=== PATIENT | female | born 1935 | race Caucasian/White ===

== ENCOUNTER 2018-12-22 20:00 | Emergency (ER) | payer MEDICARE, OTHER ==
[2018-12-22 20:04] VITALS: BP 121/63
--- NOTE | 2018-12-22 20:23 | EDM.PDOC ---
ED HPI GENERAL MEDICAL PROBLEM - General Chief Complaint: General Stated Complaint: UNKNOWN Time Seen by Provider: 12/22/18 20:18 Source of Information: Reports: Patient, Family History Limitations: Reports: No Limitations - History of Present Illness INITIAL COMMENTS - FREE TEXT/NARRATIVE: pt states not feel good unable to describe. family states pt been weak no appetite, no energy, unsteady, little confused. seems worse than after her DE last month where she has been good since 4 days ago. Right Headache Pain Score (Numeric/FACES): 6 - Related Data Allergies Allergy/AdvReac Type Severity Reaction Status Date / Time No Known Allergies Allergy Verified 12/22/18 20:12 Home Meds: Home Meds Losartan Potassium [Cozaar] 100 mg PO DAILY 08/08/16 [History] amLODIPine [Norvasc] 10 mg PO DAILY 08/08/16 [History] Cyanocobalamin (Vitamin B-12) [Cyanocobalamin Injection] 1,000 mcg IM .MONTHLY 04/01/17 [History] Ferrous Gluconate 1 tab PO TID 04/01/17 [History] Past Medical History HEENT History: Reports: Impaired Vision, Other (See Below) Other HEENT History: WEARS CORRECTIVE LENS FOR READING. 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: Musculoskeletal History: Reports: None Neurological History: Reports: CVA Psychiatric History: Reports: None Endocrine/Metabolic History: Reports: None Hematologic History: Reports: Anemia, Blood Transfusion(s) Immunologic History: Reports: None Oncologic (Cancer) History: Reports: None Dermatologic History: Reports: None - Infectious Disease History Infectious Disease History: Reports: Chicken Pox, Measles, Mumps - Past Surgical History Head Surgeries/Procedures: Reports: None HEENT Surgical History: Reports: Oral Surgery Cardiovascular Surgical History: Reports: None Respiratory Surgical History: Reports: None GI Surgical History: Reports: Hernia, Abdominal Female Surgical History: Reports: None Endocrine Surgical History: Reports: None Neurological Surgical History: Reports: None Musculoskeletal Surgical History: Reports: Other (See Below) Dermatological Surgical History: Reports: Skin Biopsy Social & Family History - Family History Family Medical History: Noncontributory HEENT: Reports: Cataract Cardiac: Reports: Heart Failure, Stent Respiratory: Reports: None GI: Reports: None : Reports: None OBGYN: Reports: None Musculoskeletal: Reports: None Neurological: Reports: CVA, Seizure Psychiatric: Reports: None Endocrine/Metabolic: Reports: Diabetes, type II Hematologic: Reports: None Oncologic: Reports: Brain - Tobacco Use Smoking Status *Q: Never Smoker - Caffeine Use Caffeine Use: Reports: None Other Caffeine Use: 24oz coffee. 4 cans soda daily - Recreational Drug Use Recreational Drug Use: No ED ROS GENERAL - Review of Systems Review Of Systems: ROS reveals no pertinent complaints other than HPI. ED EXAM, GENERAL - Physical Exam Exam: See Below Exam Limited By: No Limitations General Appearance: Alert, WD/WN, No Apparent Distress Eye Exam: Bilateral Eye: PERRL (pupils ER @ 4mm) Ears: Hearing Grossly Normal Throat/Mouth: Normal Voice, No Airway Compromise Head: Atraumatic Neck: Non-Tender, Full Range of Motion Respiratory/Chest: No Respiratory Distress, Rhonchi. No: Decreased Breath Sounds Cardiovascular: Regular Rate, Rhythm GI/Abdominal: Soft, Non-Tender Extremities: No Pedal Edema Neurological: Alert, Oriented, Normal Cognition, No Motor/Sensory Deficits Psychiatric: Flat Affect Skin Exam: Warm, Dry, Normal Color Lymphatic: No Adenopathy Course - Vital Signs Last Recorded V/S: Last Vital Signs Temp 36.4 C 12/22/18 20:01 Pulse 97 12/22/18 20:01 Resp 26 H 12/22/18 20:01 BP 121/63 12/22/18 20:01 Pulse Ox 98 12/22/18 20:01 - Orders/Labs/Meds Orders: Active Orders 24 hr Category Date Time Status EKG Documentation Completion [RC] STAT Care 12/22/18 20:15 Active Chest 1V Frontal [CR] Urgent Exams 12/22/18 20:15 Taken Head wo Cont [CT] Urgent Exams 12/22/18 20:17 Taken CULTURE URINE [RM] Routine Lab 12/22/18 20:34 Received Labs: Laboratory Tests 12/22/18 12/22/18 12/22/18 Range/Units 20:10 20:10 20:10 WBC 16.3 H (5.0-10.0) 10^3/uL RBC 5.91 H (4.2-5.4) 10^6/uL Hgb 16.8 H (12.0-16.0) g/dL Hct 50.3 H (37.0-47.0) % MCV 85.1 (80-100) fL MCH 28.4 (27.0-34.0) pg MCHC 33.4 (33.0-35.0) g/dL Plt Count 165 (150-450) 10^3/uL Neut % (Auto) 87.2 H (42.2-75.2) % Lymph % (Auto) 7.4 L (20.5-50.1) % Dolores % (Auto) 4.4 (2-8) % Eos % (Auto) 0.9 L (1.0-3.0) % Baso % (Auto) 0.1 (0.0-1.0) % D-Dimer, Quantitative (0-400) ng/mL Sodium 138 (135-145) mmol/L Potassium 2.6 L (3.6-5.0) mmol/L Chloride 94 L (101-111) mmol/L Carbon Dioxide 27.0 (21.0-31.0) mmol/L Anion Gap 19.6 BUN 33 H (7-18) mg/dL Creatinine 2.5 H (0.6-1.3) mg/dL Est Cr Clr Drug Dosing TNP Estimated GFR (MDRD) 18 BUN/Creatinine Ratio 13.20 Glucose 117 H (74-105) mg/dL Lactic Acid 2.4 H (0.5-2.2) mmol/L Calcium 8.7 (8.4-10.2) mg/dl Total Bilirubin 1.2 H (0.2-1.0) mg/dL AST 478 H (10-42) IU/L ALT 211 H (10-60) IU/L Alkaline Phosphatase 104 (42-121) IU/L Troponin I 0.14 H* (0.00-0.02) ng/ml B-Natriuretic Peptide 831 H (0-100) pg/ml Total Protein 7.0 (6.7-8.2) g/dl Albumin 3.4 (3.2-5.5) g/dl Globulin 3.6 Albumin/Globulin Ratio 0.94 Urine Color (YELLOW) Urine Appearance (CLEAR) Urine pH (5.0-9.0) Ur Specific [place] (1.005-1.030) Urine Protein (NEGATIVE) Urine Glucose (UA) (NEGATIVE) Urine Ketones (NEGATIVE) Urine Occult Blood (NEGATIVE) Urine Nitrite (NEGATIVE) Urine Bilirubin (NEGATIVE) Urine Urobilinogen (0.2-1.0) mg/dL Ur Leukocyte Esterase (NEGATIVE) Urine RBC /HPF Urine WBC (0-5/HPF) /HPF Ur Epithelial Cells (NOT SEEN) /HPF Urine Bacteria (0-FEW/HPF) /HPF Fine Granular Casts (NOT SEEN) /LPF Urine Other 12/22/18 12/22/18 Range/Units 20:10 20:34 WBC (5.0-10.0) 10^3/uL RBC (4.2-5.4) 10^6/uL Hgb (12.0-16.0) g/dL Hct (37.0-47.0) % MCV (80-100) fL MCH (27.0-34.0) pg MCHC (33.0-35.0) g/dL Plt Count (150-450) 10^3/uL Neut % (Auto) (42.2-75.2) % Lymph % (Auto) (20.5-50.1) % Dolores % (Auto) (2-8) % Eos % (Auto) (1.0-3.0) % Baso % (Auto) (0.0-1.0) % D-Dimer, Quantitative 353 (0-400) ng/mL Sodium (135-145) mmol/L Potassium (3.6-5.0) mmol/L Chloride (101-111) mmol/L Carbon Dioxide (21.0-31.0) mmol/L Anion Gap BUN (7-18) mg/dL Creatinine (0.6-1.3) mg/dL Est Cr Clr Drug Dosing Estimated GFR (MDRD) BUN/Creatinine Ratio Glucose (74-105) mg/dL Lactic Acid (0.5-2.2) mmol/L Calcium (8.4-10.2) mg/dl Total Bilirubin (0.2-1.0) mg/dL AST (10-42) IU/L ALT (10-60) IU/L Alkaline Phosphatase (42-121) IU/L Troponin I (0.00-0.02) ng/ml B-Natriuretic Peptide (0-100) pg/ml Total Protein (6.7-8.2) g/dl Albumin (3.2-5.5) g/dl Globulin Albumin/Globulin Ratio Urine Color Brown (YELLOW) Urine Appearance Turbid (CLEAR) Urine pH 7.0 (5.0-9.0) Ur Specific [place] 1.020 (1.005-1.030) Urine Protein >=300 H (NEGATIVE) Urine Glucose (UA) Negative (NEGATIVE) Urine Ketones Trace H (NEGATIVE) Urine Occult Blood Large H (NEGATIVE) Urine Nitrite Negative (NEGATIVE) Urine Bilirubin Moderate H (NEGATIVE) Urine Urobilinogen 2.0 H (0.2-1.0) mg/dL Ur Leukocyte Esterase Negative (NEGATIVE) Urine RBC 0-5 /HPF Urine WBC 10-20 H (0-5/HPF) /HPF Ur Epithelial Cells Many H (NOT SEEN) /HPF Urine Bacteria Many H (0-FEW/HPF) /HPF Fine Granular Casts Moderate H (NOT SEEN) /LPF Urine Other See note Meds: Medications Discontinued Medications Generic Name Dose Route Start Last Admin Trade Name Freq PRN Reason Stop Dose Admin Potassium Chloride 40 meq 12/22/18 21:17 12/22/18 21:24 Klor-Con 10 PO 12/22/18 21:18 40 meq ONETIME ONE Administration - Re-Assessments/Exams Free Text/Narrative Re-Assessment/Exam: 12/22/18 21:45 case discussed sheyla Olivera @ who kindly accepted pt. Departure - Departure Time of Disposition: 21:45 Disposition: DC/Tfer to Acute Hospital 02 Condition: Fair Clinical Impression: Asthenia, Dehydration syndrome, Hypokalemia, Elevated LFTs, Elevated troponin I level, Elevated brain natriuretic peptide (BNP) level - Discharge Information Forms: Interfacility Transfer EMTALA - My Orders Last 24 Hours: My Active Orders 12/22/18 20:15 EKG Documentation Completion [RC] STAT Chest 1V Frontal [CR] Urgent 12/22/18 20:17 Head wo Cont [CT] Urgent 12/22/18 20:34 CULTURE URINE [RM] Routine - Assessment/Plan Last 24 Hours: My Active Orders 12/22/18 20:15 EKG Documentation Completion [RC] STAT Chest 1V Frontal [CR] Urgent 12/22/18 20:17 Head wo Cont [CT] Urgent 12/22/18 20:34 CULTURE URINE [RM] Routine
[2018-12-22 20:40] LABS: ANION GAP 19.6; CHLORIDE,CL 94 mmol/L (101-111); SODIUM,NA 138 mmol/L (135-145)
[2018-12-22] MEDS ORDERED: Potassium Chloride 10 MEQ Tab.ER PO ONE (21:17)
== END 2018-12-22 22:32 ==
LOC: DL.ED 20:00
DX: E87.6 Hypokalemia (principal); E86.0 Dehydration; R53.1 Weakness; R74.8 Abnormal levels of other serum enzymes; R79.1 Abnormal coagulation profile; I10 Essential (primary) hypertension; D64.9 Anemia, unspecified; I25.10 Atherosclerotic heart disease of native coronary artery without angina pectoris; I25.2 Old myocardial infarction; I48.91 Unspecified atrial fibrillation; Z79.899 Other long term (current) drug therapy; Z86.73 Personal history of transient ischemic attack (TIA), and cerebral infarction without residual deficits
CPT/HCPCS: 36415; 70450; 71045; 80053; 81001; 83605; 83880; 84484; 85025; 85379; 87086; 93005; 99285; A9270

== ENCOUNTER 2019-06-30 17:19 | Emergency (ER) | payer MEDICARE, OTHER ==
[2019-06-30 17:26] VITALS: BP 159/96; PULSE 86
[2019-06-30] MEDS ORDERED: Diltiazem 25 MG/5 ML SDV IVPUSH ONE (17:32)
--- NOTE | 2019-06-30 17:48 | EDM.PDOC ---
ED HPI GENERAL MEDICAL PROBLEM - General Chief Complaint: Respiratory Problem Stated Complaint: AMBULANCE Time Seen by Provider: 06/30/19 17:35 Source of Information: Reports: Patient, EMS, Provider History Limitations: Reports: No Limitations - History of Present Illness INITIAL COMMENTS - FREE TEXT/NARRATIVE: This 84 yo female patient was brought to the ED from the [facility] by [facility] due to increased shortness of breath and tachycardia. The patient reports she has not taken her medications today. The patient reports she has been short of breath over the past couple of days. The patient reports she does not get around at her home well. The patient reports she has been having her son move her around the house. The patient reports she has a history of a stroke as well as some heart problems. The patient reports she ate today at about 1100. The provider from the [facility] was concerned about the patient not getting her medications appropriately. Apparently, the home health nurses were concerned about the cleanliness of the home. Onset: Unknown/Unsure Duration: Constant, Getting Worse Location: Reports: Chest, Other Quality: Reports: Other Severity: Moderate Improves with: Reports: None Worsens with: Reports: None Context: Reports: Other Associated Symptoms: Reports: Shortness of Breath - Related Data Allergies Allergy/AdvReac Type Severity Reaction Status Date / Time No Known Allergies Allergy Verified 12/22/18 20:12 Home Meds: Home Meds Losartan Potassium [Cozaar] 100 mg PO DAILY 08/08/16 [History] amLODIPine [Norvasc] 10 mg PO DAILY 08/08/16 [History] Cyanocobalamin (Vitamin B-12) [Cyanocobalamin Injection] 1,000 mcg IM .MONTHLY 04/01/17 [History] Ferrous Gluconate 1 tab PO TID 04/01/17 [History] Past Medical History HEENT History: Reports: Impaired Vision, Other (See Below) Other HEENT History: WEARS CORRECTIVE LENS FOR READING. 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: Musculoskeletal History: Reports: None Neurological History: Reports: CVA Psychiatric History: Reports: None Endocrine/Metabolic History: Reports: None Hematologic History: Reports: Anemia, Blood Transfusion(s) Immunologic History: Reports: None Oncologic (Cancer) History: Reports: None Dermatologic History: Reports: None - Infectious Disease History Infectious Disease History: Reports: Chicken Pox, Measles, Mumps, TB - Past Surgical History Head Surgeries/Procedures: Reports: None HEENT Surgical History: Reports: Oral Surgery Cardiovascular Surgical History: Reports: None Respiratory Surgical History: Reports: None GI Surgical History: Reports: Hernia, Abdominal Female Surgical History: Reports: None Endocrine Surgical History: Reports: None Neurological Surgical History: Reports: None Musculoskeletal Surgical History: Reports: Other (See Below) Dermatological Surgical History: Reports: Skin Biopsy Social & Family History - Family History Family Medical History: Noncontributory HEENT: Reports: Cataract Cardiac: Reports: Heart Failure, Stent Respiratory: Reports: None GI: Reports: None : Reports: None OBGYN: Reports: None Musculoskeletal: Reports: None Neurological: Reports: CVA, Seizure Psychiatric: Reports: None Endocrine/Metabolic: Reports: Diabetes, type II Hematologic: Reports: None Oncologic: Reports: Brain - Tobacco Use Smoking Status *Q: Never Smoker Second Hand Smoke Exposure: No - Caffeine Use Caffeine Use: Reports: None Other Caffeine Use: 24oz coffee. 4 cans soda daily - Recreational Drug Use Recreational Drug Use: No ED ROS GENERAL - Review of Systems Review Of Systems: Comprehensive ROS is negative, except as noted in HPI. ED EXAM, GENERAL - Physical Exam Exam: See Below Exam Limited By: No Limitations General Appearance: Alert, WD/WN, No Apparent Distress Eye Exam: Bilateral Eye: EOMI, Normal Inspection, PERRL Ears: Normal External Exam, Normal Canal, Hearing Grossly Normal, Normal TMs Nose: Normal Inspection, Normal Mucosa, No Blood Head: Atraumatic, Normocephalic Neck: Normal Inspection, Supple, Non-Tender, Full Range of Motion Respiratory/Chest: No Respiratory Distress, Lungs Clear, Normal Breath Sounds, No Accessory Muscle Use, Chest Non-Tender Cardiovascular: Normal Peripheral Pulses, Regular Rate, Rhythm, No Edema, No Gallop, No JVD, No Murmur, No Rub GI/Abdominal: Normal Bowel Sounds, Soft, Non-Tender, No Organomegaly, No Distention, No Abnormal Bruit, No Mass (Female) Exam: Deferred Rectal (Female) Exam: Deferred Back Exam: Normal Inspection, Full Range of Motion, NT Extremities: Normal Inspection, Normal Range of Motion, Non-Tender, Normal Capillary Refill, No Pedal Edema Neurological: Alert, Oriented, CN II-XII Intact, Normal Cognition, Normal Gait, Normal Reflexes, No Motor/Sensory Deficits Psychiatric: Normal Affect, Normal Mood Skin Exam: Warm, Dry, Intact, Normal Color, No Rash Lymphatic: No Adenopathy EKG INTERPRETATION EKG Date: 06/30/19 Rhythm: Other (A fib with RVR) [place]: Normal P-Wave: Absent QRS: Normal ST-T: Normal QT: Normal Comparison: Change From Previous EKG Course - Vital Signs Last Recorded V/S: Last Vital Signs Temp 36.4 C 06/30/19 17:21 Pulse 86 06/30/19 17:21 Resp 24 H 06/30/19 17:21 BP 159/96 H 06/30/19 17:21 Pulse Ox 96 06/30/19 17:21 - Orders/Labs/Meds Orders: Active Orders 24 hr Category Date Time Status EKG Documentation Completion [RC] URGENT Care 06/30/19 17:23 Active Chest 1V Frontal [CR] Urgent Exams 06/30/19 17:23 Taken Diltiazem 125 MG in NS @ 5 MG/HR(100ml) Med 06/30/19 18:30 Ordered Diltiazem 125 mg Sodium Chloride 0.9% [Normal Saline] 100 ml IV TITRATE Medication Orders Diltiazem HCl 125 mg/ Sodium (Chloride) 125 mls @ 5 mls/hr IV TITRATE RITA; Protocol Labs: Laboratory Tests 06/30/19 06/30/19 Range/Units 17:27 17:27 Troponin I 0.02 (0.00-0.02) ng/ml B-Natriuretic Peptide 826 H (0-100) pg/ml Meds: Medications Generic Name Dose Route Start Last Admin Trade Name Freq PRN Reason Stop Dose Admin Diltiazem HCl 125 mg/ Sodium 125 mls @ 5 mls/hr 06/30/19 18:30 Chloride IV TITRATE RITA Protocol 5 MG/HR Discontinued Medications Generic Name Dose Route Start Last Admin Trade Name Freq PRN Reason Stop Dose Admin Diltiazem HCl 20 mg 06/30/19 17:32 06/30/19 17:48 Diltiazem IVPUSH 06/30/19 17:33 20 mg ONETIME ONE Administration Departure - Departure Time of Disposition: 18:29 Disposition: DC/Tfer to Acute Hospital 02 Condition: Serious Clinical Impression: Pleural effusion, left, Atrial fibrillation with RVR - Discharge Information *PRESCRIPTION DRUG MONITORING PROGRAM REVIEWED*: Not Applicable *COPY OF PRESCRIPTION DRUG MONITORING REPORT IN PATIENT TAHIR: Not Applicable Forms: Interfacility Transfer EMTALA Care Plan Goals: Discussed the patient's history, examination, lab and treatments with Dr. Monk. Dr. Monk accepted the patient for continued evaluation and management. The patient will be transported by [facility]. Sepsis Event Note - Evaluation Sepsis Screening Result: No Definite Risk - Focused Exam Vital Signs: Vital Signs Temp Pulse Resp BP Pulse Ox 06/30/19 17:21 36.4 C 86 24 H 159/96 H 96 Date Exam was Performed: 06/30/19 Time Exam was Performed: 18:29 - My Orders Last 24 Hours: My Active Orders 06/30/19 17:23 EKG Documentation Completion [RC] URGENT Chest 1V Frontal [CR] Urgent 06/30/19 18:30 Diltiazem 125 MG in NS @ 5 MG/HR(100ml) Diltiazem 125 mg Sodium Chloride 0.9% [Normal Saline] 100 ml IV TITRATE - Assessment/Plan Last 24 Hours: My Active Orders 06/30/19 17:23 EKG Documentation Completion [RC] URGENT Chest 1V Frontal [CR] Urgent 06/30/19 18:30 Diltiazem 125 MG in NS @ 5 MG/HR(100ml) Diltiazem 125 mg Sodium Chloride 0.9% [Normal Saline] 100 ml IV TITRATE
[2019-06-30] MEDS ORDERED: Diltiazem 125 MG in Sodium Chloride 0.9% 100 ML IV SCH (18:30)
== END 2019-06-30 19:00 ==
LOC: DL.ED 17:19
DX: J90 Pleural effusion, not elsewhere classified (principal); I48.91 Unspecified atrial fibrillation; I25.10 Atherosclerotic heart disease of native coronary artery without angina pectoris; I25.2 Old myocardial infarction; I12.9 Hypertensive chronic kidney disease with stage 1 through stage 4 chronic kidney disease, or unspecified chronic kidney disease; N18.9 Chronic kidney disease, unspecified; Z86.73 Personal history of transient ischemic attack (TIA), and cerebral infarction without residual deficits; Z79.899 Other long term (current) drug therapy
CPT/HCPCS: 36415; 71045; 83880; 84484; 93005; 96365; 96376; 99285; J3490; J7050; 93010; 99284

== ENCOUNTER 2019-07-11 10:42 | Inpatient (IN) | payer MEDICARE, OTHER ==
[2019-07-11] MEDS ORDERED: Acetaminophen 325 MG Tab PO PRN (13:45)
[2019-07-11] MEDS ORDERED: oxyCODONE 5 MG Tab PO PRN (13:45)
[2019-07-11] MEDS ORDERED: Cyanocobalamin (Vitamin B12) 1,000 MCG/ML SDV IM SCH (14:00)
--- NOTE | 2019-07-11 15:06 | HP ---
HISTORY OF PRESENT ILLNESS: The patient is an 84-year-old lady who was admitted to [facility] with atrial fibrillation with rapid ventricular response and bilateral pleural effusion, is status post chest tube placement for drainage, and pneumonia and CHF exacerbation. Her BNP was elevated at 615, and she had a chest tube placement, done last 07/03/2019 for drainage. She had an echocardiogram done, which showed ejection fraction of 65 to 70 with severely dilated left and right atrium. The patient was seen by Dr. Garcia for which she was placed on amiodarone temporarily for rate control. She was initially on Cardizem drip and this was switched to Cardizem p.o., and the patient was also seen by Infectious Disease for her pneumonia and was on ceftaroline. The patient was also seen by Dr. Harden because of her chronic kidney disease. The patient's shortness of breath and rapid ventricular response improved, and she was subsequently discharged to swing bed here at [facility] and to be continued on her medication and also for strengthening. The patient currently denies any chest pain. Denies any worsening of shortness of breath. No fever, chills, abdominal pain, nor any other complaints. PAST MEDICAL HISTORY: As in HPI. She has also history of hypertension, coronary artery disease, and dyslipidemia. SOCIAL HISTORY: The patient lives with her son who is . She is a nonsmoker and non-alcohol drinker. REVIEW OF SYSTEMS: As in HPI. The rest of the review of systems is negative. CURRENT MEDICATIONS: Metoprolol 50 mg p.o. b.i.d., Bumex 1 mg b.i.d., vitamin B12 1000 mcg IM monthly, potassium chloride 7.5 mL p.o. daily, folic acid 1 mg p.o. daily, diltiazem 180 mg daily, aspirin 81 mg daily, and apixaban 2.5 mg b.i.d. ALLERGIES: Atorvastatin. PHYSICAL EXAMINATION: General: The patient is alert and oriented, but looks weak, but not in any acute distress. Vital Signs: Blood pressure is 128/62, pulse of 55, temperature is 97.7, and saturation is 99% on room air. SHEENT: Normocephalic. There are pink palpebral conjunctivae. Sclerae anicteric. No JVD. No lymphadenopathy. Neck: Supple. Heart: Irregularly irregular. Ventricular response within normal limits. No rubs. Lungs: Diminished breath sounds on both bases, but no significant crackles nor wheezing. Abdomen: Soft, nontender. Bowel sounds positive. Extremities: Negative for any significant pedal edema. No calf tenderness. ADMITTING DIAGNOSES: 1. History of atrial fibrillation with rapid ventricular response. The patient's current rate is atrial fibrillation, but now with a controlled ventricular response. 2. Recent pneumonia with bilateral pleural effusion, status post chest tube placement for drainage. 3. Hypertension. 4. Anemia of chronic kidney disease. 5. Deconditioning. TREATMENT PLAN: The patient is going to be admitted to [facility] bed. She will be continued on her medications from [facility]. We will also have PT and OT see the patient for evaluation. The patient is a DNR/DNI. [facility] /[id number]
[2019-07-11] MEDS: Bumetanide 1 MG Tab PO SCH (16:02)
[2019-07-11] MEDS: Metoprolol Tartrate 50 MG Tab PO SCH (23:10)
[2019-07-11] MEDS: Apixaban 5 MG Tab PO SCH (23:11)
[2019-07-12] MEDS: Bumetanide 1 MG Tab PO SCH ×2 (06:47→16:43)
[2019-07-12 07:01] LABS: ANION GAP 11.1 mEq/L (7-13)
[2019-07-12] MEDS: Potassium Chloride 10% 20 MEQ/15 ML Soln 15 ML UD Cup PO SCH (10:14)
[2019-07-12] MEDS: Aspirin 81 MG Tab.EC PO SCH (10:15)
[2019-07-12] MEDS: Diltiazem 180 MG Cap.CD PO SCH (10:15)
[2019-07-12] MEDS: Metoprolol Tartrate 50 MG Tab PO SCH ×2 (10:16→22:00)
[2019-07-12] MEDS: Apixaban 5 MG Tab PO SCH ×2 (10:16→21:58)
[2019-07-12] MEDS: Folic Acid 1 MG Tab PO SCH (10:17)
[2019-07-13] MEDS: Bumetanide 1 MG Tab PO SCH ×2 (05:58→17:08)
[2019-07-13] MEDS: Diltiazem 180 MG Cap.CD PO SCH (09:23)
[2019-07-13] MEDS: Apixaban 5 MG Tab PO SCH ×2 (09:24→21:06)
[2019-07-13] MEDS: Folic Acid 1 MG Tab PO SCH (09:26)
[2019-07-13] MEDS: Aspirin 81 MG Tab.EC PO SCH (09:27)
[2019-07-13] MEDS: Potassium Chloride 10% 20 MEQ/15 ML Soln 15 ML UD Cup PO SCH (09:28)
[2019-07-13] MEDS: Metoprolol Tartrate 50 MG Tab PO SCH ×2 (11:19→21:07)
--- NOTE | 2019-07-13 11:36 | PN ---
DATE: 07/13/2019 SUBJECTIVE: The patient continues to do well. She denies any significant ongoing complaints. Denies any chest pain or shortness of breath, orthopnea, abdominal pain, or any other complaints. OBJECTIVE: Vital Signs: Blood pressure is 115/57, pulse of 99, respiration of 20, temperature of 97.8, saturation is 95% on room air. Heart: Regular rate and rhythm. Normal S1 and S2. No gallops. No rubs. Lungs: Equal bilaterally. No crackles. No wheezing. Abdomen: Soft, nontender. Bowel sounds positive. Extremities: Negative for any significant pedal edema. No calf tenderness. PLAN: We will continue with her present management and continue with PT and OT. [facility] /[id number]
[2019-07-14] MEDS: Bumetanide 1 MG Tab PO SCH ×2 (06:08→17:40)
[2019-07-14] MEDS: Folic Acid 1 MG Tab PO SCH (08:18)
[2019-07-14] MEDS: Apixaban 5 MG Tab PO SCH ×2 (08:18→20:31)
[2019-07-14] MEDS: Aspirin 81 MG Tab.EC PO SCH (08:18)
[2019-07-14] MEDS: Potassium Chloride 10% 20 MEQ/15 ML Soln 15 ML UD Cup PO SCH (08:19)
[2019-07-14] MEDS: Diltiazem 180 MG Cap.CD PO SCH (08:20)
[2019-07-14] MEDS: Metoprolol Tartrate 50 MG Tab PO SCH ×2 (08:20→20:34)
[2019-07-14] MEDS: Docusate Sodium 100 MG Cap PO PRN (20:31)
[2019-07-15] MEDS: Bumetanide 1 MG Tab PO SCH ×2 (06:04→15:49)
[2019-07-15] MEDS: Metoprolol Tartrate 50 MG Tab PO SCH ×2 (09:17→21:11)
[2019-07-15] MEDS: Folic Acid 1 MG Tab PO SCH (09:18)
[2019-07-15] MEDS: Aspirin 81 MG Tab.EC PO SCH (09:19)
[2019-07-15] MEDS: Diltiazem 180 MG Cap.CD PO SCH (09:19)
[2019-07-15] MEDS: Potassium Chloride 10% 20 MEQ/15 ML Soln 15 ML UD Cup PO SCH (09:19)
[2019-07-15] MEDS: Apixaban 5 MG Tab PO SCH ×2 (09:20→21:05)
--- NOTE | 2019-07-15 12:01 | PN ---
DATE: 07/15/2019 SUBJECTIVE: The patient is doing fairly well. She is slowly regaining her strength. She denies any chest pain, palpitations, shortness of breath, fever, chills, nor any other complaints. OBJECTIVE: Vital Signs: Blood pressure is 110/41, pulse of 87, respiration of 18, temperature of 98.5, saturation is 97% on room air. Heart: Regular. Ventricular response within normal limits. Lungs: Diminished breath sounds on both bases, but no crackles, wheezing, or rhonchi. Abdomen: Soft and nontender. Bowel sounds positive. Extremities: Negative for any significant pedal edema. No calf tenderness. MEDICATIONS: Reviewed. PLAN: We will continue with her present management, and we will check for CBC and basic metabolic panel in a.m. [facility] /[id number]
[2019-07-15] MEDS: Docusate Sodium 100 MG Cap PO PRN (21:06)
[2019-07-16 06:34] LABS: ANION GAP 5.4 mEq/L (7-13)
[2019-07-16] MEDS: Bumetanide 1 MG Tab PO SCH ×2 (06:39→16:09)
[2019-07-16] MEDS: Diltiazem 180 MG Cap.CD PO SCH (08:40)
[2019-07-16] MEDS: Metoprolol Tartrate 50 MG Tab PO SCH ×2 (08:41→21:36)
[2019-07-16] MEDS: Folic Acid 1 MG Tab PO SCH (08:41)
[2019-07-16] MEDS: Potassium Chloride 10% 20 MEQ/15 ML Soln 15 ML UD Cup PO SCH (08:42)
[2019-07-16] MEDS: Aspirin 81 MG Tab.EC PO SCH (08:42)
[2019-07-16] MEDS ORDERED: Magnesium Hydroxide 400 MG/5 ML Susp 30 ML Cup PO PRN (08:42)
[2019-07-16] MEDS: Apixaban 5 MG Tab PO SCH ×2 (08:42→21:37)
[2019-07-16] MEDS: Docusate Sodium 100 MG Cap PO SCH (08:53)
[2019-07-17] MEDS: Bumetanide 1 MG Tab PO SCH ×2 (06:03→16:24)
[2019-07-17] MEDS: Apixaban 5 MG Tab PO SCH ×2 (08:42→20:16)
[2019-07-17] MEDS: Aspirin 81 MG Tab.EC PO SCH (08:42)
[2019-07-17] MEDS: Diltiazem 180 MG Cap.CD PO SCH (08:43)
[2019-07-17] MEDS: Metoprolol Tartrate 50 MG Tab PO SCH ×2 (08:43→20:16)
[2019-07-17] MEDS: Folic Acid 1 MG Tab PO SCH (08:43)
[2019-07-17] MEDS: Docusate Sodium 100 MG Cap PO SCH (08:43)
[2019-07-17] MEDS: Potassium Chloride 10% 20 MEQ/15 ML Soln 15 ML UD Cup PO SCH (08:45)
[2019-07-17] MEDS ORDERED: Benzocaine/Docusate Sodium 20-283 MG/5 ML Enema RECTAL ONE (11:00)
[2019-07-18] MEDS: Bumetanide 1 MG Tab PO SCH ×2 (06:03→16:13)
[2019-07-18] MEDS: Potassium Chloride 10% 20 MEQ/15 ML Soln 15 ML UD Cup PO SCH (09:05)
[2019-07-18] MEDS: Diltiazem 180 MG Cap.CD PO SCH (09:05)
[2019-07-18] MEDS: Apixaban 5 MG Tab PO SCH ×2 (09:05→22:25)
[2019-07-18] MEDS: Metoprolol Tartrate 50 MG Tab PO SCH ×2 (09:06→22:27)
[2019-07-18] MEDS: Aspirin 81 MG Tab.EC PO SCH (09:06)
[2019-07-18] MEDS: Folic Acid 1 MG Tab PO SCH (09:06)
[2019-07-18] MEDS: Docusate Sodium 100 MG Cap PO SCH (09:06)
[2019-07-19] MEDS: Bumetanide 1 MG Tab PO SCH ×2 (06:13→14:59)
[2019-07-19] MEDS: Potassium Chloride 10% 20 MEQ/15 ML Soln 15 ML UD Cup PO SCH (08:42)
[2019-07-19] MEDS: Apixaban 5 MG Tab PO SCH ×2 (08:42→20:19)
[2019-07-19] MEDS: Metoprolol Tartrate 50 MG Tab PO SCH ×2 (08:43→20:20)
[2019-07-19] MEDS: Docusate Sodium 100 MG Cap PO SCH (08:43)
[2019-07-19] MEDS: Diltiazem 180 MG Cap.CD PO SCH (08:43)
[2019-07-19] MEDS: Folic Acid 1 MG Tab PO SCH (08:44)
[2019-07-19] MEDS: Aspirin 81 MG Tab.EC PO SCH (08:44)
--- NOTE | 2019-07-19 11:23 | PCM.PN ---
- General Info Date of Service: 07/19/19 Subjective Update: 84-year-old lady with a history of found acute hospitalization for rapid atrial fibrillation, congestive heart failure with diastolic dysfunction, pleural effusion requiring chest tube drainage. She was treated for pneumonia, chronic renal failure. The patient was transferred to [facility] hospital bed for further physical and occupational therapy. - Review of Systems General: Reports: Weakness. Denies: Fever Pulmonary: Denies: Shortness of Breath Cardiovascular: Denies: Chest Pain Gastrointestinal: Denies: Abdominal Pain - Patient Data Vitals - Most Recent: Last Vital Signs Temp 97.1 F 07/19/19 08:00 Pulse 107 H 07/19/19 08:43 Resp 20 07/19/19 08:00 BP 109/48 L 07/19/19 08:43 Pulse Ox 96 07/19/19 08:00 Weight - Most Recent: 126 lb 6.4 oz I&O - Last 24 Hours: Intake & Output 07/18/19 07/19/19 07/19/19 22:59 06:59 14:59 Intake Total 120 400 540 Balance 120 400 540 Med Orders - Current: Current Medications Acetaminophen (Tylenol) 650 mg PO Q4H PRN PRN Reason: Pain (Mild 1-3)/fever Apixaban (Eliquis) 2.5 mg PO BID [facility] Last Admin: 07/19/19 08:42 Dose: 2.5 mg Aspirin (Halfprin) 81 mg PO DAILY [facility] Last Admin: 07/19/19 08:44 Dose: 81 mg Bumetanide (Bumex) 1 mg PO BIDAC [facility] Last Admin: 07/19/19 06:13 Dose: 1 mg Diltiazem HCl (Cardizem Cd) 180 mg PO DAILY [facility] Last Admin: 07/19/19 08:43 Dose: 180 mg Docusate Sodium (Colace) 100 mg PO DAILY [facility] Last Admin: 07/19/19 08:43 Dose: 100 mg Folic Acid (Folic Acid) 1 mg PO DAILY [facility] Last Admin: 07/19/19 08:44 Dose: 1 mg Magnesium Hydroxide (Milk Of Magnesia) 30 ml PO DAILY PRN PRN Reason: Constipation Last Admin: 07/16/19 08:53 Dose: 30 ml Metoprolol Tartrate (Lopressor) 50 mg PO BID [facility] Last Admin: 07/19/19 08:43 Dose: 50 mg Oxycodone HCl (Oxycodone) 5 mg PO Q4H PRN PRN Reason: Pain (moderate 4-6) Potassium Chloride (Potassium Chloride Solution) 20 meq PO DAILY [facility] Last Admin: 07/18/19 09:05 Dose: 20 meq Discontinued Medications Cyanocobalamin (Vitamin B12) 1,000 mcg IM .MONTHLY [facility] Docusate Sodium (Colace) 100 mg PO BID PRN PRN Reason: Constipation Last Admin: 07/15/19 21:06 Dose: 100 mg Docusate Sodium/Benzocaine (Enemeez Plus Mini Enema) 1 each RECTAL ONETIME ONE Stop: 07/17/19 11:01 Last Admin: 07/17/19 11:01 Dose: 1 each Potassium Chloride (Potassium Chloride Solution) 10 meq PO DAILY [facility] Last Admin: 07/16/19 08:42 Dose: 10 meq - Exam General: Alert, Oriented Neck: Supple Lungs: Clear to Auscultation, Normal Respiratory Effort Cardiovascular: Irregular Rhythm GI/Abdominal Exam: Normal Bowel Sounds, Soft, Non-Tender Extremities: No Pedal Edema Sepsis Event Note - Evaluation Sepsis Screening Result: No Definite Risk - Focused Exam Vital Signs: Vital Signs Temp Pulse Pulse Resp BP BP Pulse Ox 07/19/19 08:43 107 H 109/48 L 07/19/19 08:00 97.1 F 107 H 20 109/48 L 96 Date Exam was Performed: 07/19/19 Time Exam was Performed: 12:06 - Problem List & Annotations (1) Atrial fibrillation with RVR SNOMED Code(s): 081771445864997 Code(s): I48.91 - UNSPECIFIED ATRIAL FIBRILLATION Status: Acute Current Visit: No (2) Hypokalemia SNOMED Code(s): 44921914 Code(s): E87.6 - HYPOKALEMIA Status: Acute Current Visit: No - Problem List Review Problem List Initiated/Reviewed/Updated: Yes - Plan Plan:: Prolonged acute hospital care for rapid atrial fibrillation, pleural effusion requiring chest tube, pneumonia. Generalized weakness following acute hospital treatment Continue physical and occupational therapy Atrial fibrillation Rate is controlled with Cardizem and metoprolol Blood pressure is on the lower side, we'll use holding per meters Anticoagulation for atrial fibrillation and DVT prophylaxis with apixaban Pleural effusions Continue diuretics Follow electrolytes and renal function ke Hypokalemia Recheck Continue supplement
[2019-07-20] MEDS: Bumetanide 1 MG Tab PO SCH ×2 (06:01→16:52)
[2019-07-20 06:54] LABS: ANION GAP 2.1 mEq/L (7-13)
[2019-07-20] MEDS: Potassium Chloride 10% 20 MEQ/15 ML Soln 15 ML UD Cup PO SCH ×3 (08:55→16:52)
[2019-07-20] MEDS: Aspirin 81 MG Tab.EC PO SCH (08:55)
[2019-07-20] MEDS: Diltiazem 180 MG Cap.CD PO SCH (08:55)
[2019-07-20] MEDS: Docusate Sodium 100 MG Cap PO SCH (08:55)
[2019-07-20] MEDS: Folic Acid 1 MG Tab PO SCH (08:55)
[2019-07-20] MEDS: Metoprolol Tartrate 50 MG Tab PO SCH ×2 (08:55→21:29)
[2019-07-20] MEDS: Apixaban 5 MG Tab PO SCH ×2 (08:56→21:28)
[2019-07-21] MEDS: Bumetanide 1 MG Tab PO SCH (06:01)
[2019-07-21 07:21] LABS: ANION GAP 5.1 mEq/L (7-13)
[2019-07-21] MEDS ORDERED: Potassium Chloride 10% 20 MEQ/15 ML Soln 15 ML UD Cup PO SCH (08:00)
[2019-07-21] MEDS: Apixaban 5 MG Tab PO SCH (08:41)
[2019-07-21] MEDS: Diltiazem 180 MG Cap.CD PO SCH (08:41)
[2019-07-21] MEDS: Aspirin 81 MG Tab.EC PO SCH (08:41)
[2019-07-21] MEDS: Docusate Sodium 100 MG Cap PO SCH (08:41)
[2019-07-21] MEDS: Folic Acid 1 MG Tab PO SCH (08:41)
[2019-07-21] MEDS: Metoprolol Tartrate 50 MG Tab PO SCH (08:48)
[2019-07-21 08:49] VITALS: BP 100/43; PULSE 75
--- NOTE | 2019-07-21 09:54 | PCM.DCSUM1 ---
Discharge Summary - Hospital Course Free Text/Narrative:: Prolonged acute hospital care for rapid atrial fibrillation, pleural effusion requiring chest tube, pneumonia. admitted to swing bed with Generalized weakness following acute hospital treatment did well with physical and occupational therapy Atrial fibrillation Rate is controlled with Cardizem and metoprolol Anticoagulation for atrial fibrillation and DVT prophylaxis with apixaban Pleural effusions Continue diuretics Hypokalemia Recheck periodically Continue supplement Diagnosis: Stroke: No - Discharge Data Discharge Date: 07/21/19 Discharge Disposition: [facility] Condition: Good - Referral to Home Health Primary Care Physician: Wendy Perry NP - Discharge Diagnosis/Problem(s) (1) Atrial fibrillation with RVR SNOMED Code(s): 214726799601793 ICD Code: I48.91 - UNSPECIFIED ATRIAL FIBRILLATION Status: Acute Current Visit: No (2) Hypokalemia SNOMED Code(s): 95201810 ICD Code: E87.6 - HYPOKALEMIA Status: Acute Current Visit: No - Patient Summary/Data Consults: Consultations 07/11/19 14:06 Consult to Occupational Therapy [OT Evaluation and Treatment] [CONS] Routine Consult to Physical Therapy [PT Evaluation and Treatment] [CONS] Routine - Patient Instructions Diet: Heart Healthy Diet Activity: As Tolerated - Discharge Plan *PRESCRIPTION DRUG MONITORING PROGRAM REVIEWED*: Not Applicable *COPY OF PRESCRIPTION DRUG MONITORING REPORT IN PATIENT TAHIR: Not Applicable Prescriptions/Med Rec: Folic Acid 1 mg PO DAILY #30 tablet Potassium Chloride [Potassium Chloride Solution] 20 meq PO BIDMEALS 30 Days cup Home Medications: Home Meds Apixaban [Eliquis] 2.5 mg PO BID 07/11/19 [History] Aspirin [Halfprin] 81 mg PO DAILY 07/11/19 [History] Bumetanide [Bumex] 1 mg PO BIDAC 07/11/19 [History] Diltiazem HCl [Cardizem Cd] 180 mg PO DAILY 07/11/19 [History] Metoprolol Tartrate [Lopressor] 50 mg PO BID 07/11/19 [History] Folic Acid 1 mg PO DAILY #30 tablet 07/21/19 [Rx] Potassium Chloride [Potassium Chloride Solution] 20 meq PO BIDMEALS 30 Days cup 07/21/19 [Rx] Oxygen Therapy Mode: Room Air Referrals: Wendy Perry NP [Primary Care Provider] - - Discharge Summary/Plan Comment DC Time >30 min.: No - General Info Date of Service: 07/21/19 Functional Status: Reports: Tolerating Diet - Review of Systems General: Reports: Weakness (improved). Denies: Fever Pulmonary: Denies: Shortness of Breath Cardiovascular: Denies: Chest Pain Gastrointestinal: Denies: Abdominal Pain Genitourinary: Denies: Dysuria - Patient Data Vitals - Most Recent: Last Vital Signs Temp 98.2 F 07/20/19 19:35 Pulse 75 07/21/19 08:48 Resp 20 07/20/19 19:35 BP 100/43 L 07/21/19 08:48 Pulse Ox 97 07/20/19 19:35 Weight - Most Recent: 125 lb 4 oz I&O - Last 24 hours: Intake & Output 07/20/19 07/21/19 07/21/19 22:59 06:59 14:59 Output Total 1 Balance -1 Lab Results - Last 24 hrs: Laboratory Results - last 24 hr 07/21/19 Range/Units 05:50 Sodium 142 (136-145) mmol/L Potassium 4.1 (3.5-5.1) mmol/L Chloride 101 (98-107) mmol/L Carbon Dioxide 40 H (21-32) mmol/L Anion Gap 5.1 L (7-13) mEq/L BUN 27 H (7-18) mg/dL Creatinine 1.97 H (0.55-1.02) mg/dL Est Cr Clr Drug Dosing 19.07 mL/min Estimated GFR (MDRD) 24 Glucose 78 (74-99) mg/dL Calcium 8.0 L (8.5-10.1) mg/dL Med Orders - Current: Current Medications Acetaminophen (Tylenol) 650 mg PO Q4H PRN PRN Reason: Pain (Mild 1-3)/fever Apixaban (Eliquis) 2.5 mg PO BID [facility] Last Admin: 07/21/19 08:41 Dose: 2.5 mg Aspirin (Halfprin) 81 mg PO DAILY [facility] Last Admin: 07/21/19 08:41 Dose: 81 mg Bumetanide (Bumex) 1 mg PO BIDAC [facility] Last Admin: 07/21/19 06:01 Dose: 1 mg Diltiazem HCl (Cardizem Cd) 180 mg PO DAILY [facility] Last Admin: 07/21/19 08:41 Dose: 180 mg Docusate Sodium (Colace) 100 mg PO DAILY [facility] Last Admin: 07/21/19 08:41 Dose: 100 mg Folic Acid (Folic Acid) 1 mg PO DAILY [facility] Last Admin: 07/21/19 08:41 Dose: 1 mg Magnesium Hydroxide (Milk Of Magnesia) 30 ml PO DAILY PRN PRN Reason: Constipation Last Admin: 07/16/19 08:53 Dose: 30 ml Metoprolol Tartrate (Lopressor) 50 mg PO BID [facility] Last Admin: 07/21/19 08:48 Dose: 50 mg Oxycodone HCl (Oxycodone) 5 mg PO Q4H PRN PRN Reason: Pain (moderate 4-6) Potassium Chloride (Potassium Chloride Solution) 20 meq PO BIDMEALS [facility] Last Admin: 07/21/19 08:43 Dose: 20 meq Discontinued Medications Cyanocobalamin (Vitamin B12) 1,000 mcg IM .MONTHLY [facility] Docusate Sodium (Colace) 100 mg PO BID PRN PRN Reason: Constipation Last Admin: 07/15/19 21:06 Dose: 100 mg Docusate Sodium/Benzocaine (Enemeez Plus Mini Enema) 1 each RECTAL ONETIME ONE Stop: 07/17/19 11:01 Last Admin: 07/17/19 11:01 Dose: 1 each Potassium Chloride (Potassium Chloride Solution) 10 meq PO DAILY [facility] Last Admin: 07/16/19 08:42 Dose: 10 meq Potassium Chloride (Potassium Chloride Solution) 20 meq PO DAILY [facility] Last Admin: 07/20/19 08:55 Dose: 20 meq Potassium Chloride (Potassium Chloride Solution) 40 meq PO TIDMEALS [facility] Stop: 07/20/19 17:01 Last Admin: 07/20/19 16:52 Dose: 40 meq - Exam General: Reports: Alert, Oriented Neck: Reports: Supple Lungs: Reports: Clear to Auscultation, Normal Respiratory Effort Cardiovascular: Reports: Irregular Rhythm GI/Abdominal Exam: Normal Bowel Sounds, Soft, Non-Tender Extremities: No Pedal Edema
== END 2019-07-21 10:20 | DRG 308 ==
LOC: UNDOADMIN 11:53 → DL.MS 11:53
PROVIDERS: ADMIT Internal Medicine; ATTEND Internal Medicine
DX: I48.91 Unspecified atrial fibrillation (principal); I50.33 Acute on chronic diastolic (congestive) heart failure; J90 Pleural effusion, not elsewhere classified; I13.0 Hypertensive heart and chronic kidney disease with heart failure and stage 1 through stage 4 chronic kidney disease, or unspecified chronic kidney disease; R53.1 Weakness; E87.6 Hypokalemia; D63.1 Anemia in chronic kidney disease; Z66 Do not resuscitate; N18.9 Chronic kidney disease, unspecified; I25.10 Atherosclerotic heart disease of native coronary artery without angina pectoris; E78.5 Hyperlipidemia, unspecified; Z88.8 Allergy status to other drugs, medicaments and biological substances; Z79.82 Long term (current) use of aspirin; Z79.899 Other long term (current) drug therapy
CPT/HCPCS: 36415; 80048; 85025; 97110-GO; 97110-GP; 97116-GP; 97162-GP; 97165-GO; 97530-GO; A9270-GY